=== PATIENT | female | born 1965 | race Asian ===

== ENCOUNTER 2017-02-10 16:46 | Emergency (ER) | payer OTHER ==
[~2017-02-10] VITALS: Ht 167.6 cm; Wt 64.2 kg
[~2017-02-10 16:46] MED LIST: BIFI1CAP PO; CALC1CAP8 PO; GLUC1TAB27 PO; LORA-438 PO; MULT-516 PO; TAMO10TA PO; [UNRECOGNIZED DRUG - OTHER] PO; [UNRECOGNIZED DRUG - OTHER] PO; [UNRECOGNIZED DRUG - OTHER] PO
[2017-02-10] MEDS ORDERED: ASPIRIN 81 MG TABLET CHEW PO ONE (17:00)
[2017-02-10 17:24] LABS: HEMATOCRIT 41.1 % (34.6-47.8); WHITE BLOOD COUNT 6.7 x10^3/uL (3.4-10)
[2017-02-10 17:34] LABS: ASPARTATE AMINO TRANSFERASE 19 U/L (15-37); BLOOD UREA NITROGEN 14 mg/dL (7-18)
[2017-02-10] MEDS ORDERED: ASPIRIN 81 MG TABLET CHEW ONE (17:39)
[2017-02-10 17:40] LABS: IS PT STATUS REG ER OR PRE ER? YES
[2017-02-10 18:16] VITALS: BP 110/71
== END 2017-02-10 18:19 | disposition home or self-care (01) ==
LOC: ED 18:00
DX: R07.89 Other chest pain (principal)
CPT/HCPCS: 36415; 71010; 80053; 84484; 85025; 93005; 99285

== ENCOUNTER → 2017-02-18 | Outpatient (CLI) | payer OTHER ==
[2017-02-18 07:57] LABS: HEMATOCRIT 42.5 % (34.6-47.8); HEMOGLOBIN 14.5 g/dL (11.7-16.4)
[2017-02-18 08:09] LABS: BLOOD UREA NITROGEN 18 mg/dL (7-18)
[2017-02-18 08:21] LABS: ASPARTATE AMINO TRANSFERASE 25 U/L (15-37)
== END | disposition home or self-care (01) ==
LOC: LAB 07:42
PROVIDERS: ATTEND Physician Assistant
DX: Z13.220 Encounter for screening for lipoid disorders (principal); R53.83 Other fatigue; E78.5 Hyperlipidemia, unspecified; R73.01 Impaired fasting glucose; C50.919 Malignant neoplasm of unspecified site of unspecified female breast; N39.0 Urinary tract infection, site not specified; R07.89 Other chest pain; E04.1 Nontoxic single thyroid nodule; E34.9 Endocrine disorder, unspecified; Z87.442 Personal history of urinary calculi
CPT/HCPCS: 36415; 80053; 80061; 82306; 83970; 84100; 84443; 85025

== ENCOUNTER → 2017-09-08 | Outpatient (CLI) | payer OTHER ==
[2017-09-08 08:19] LABS: BASOPHILS # (AUTO) 0.06 x10^3/uL (0-0.1); BASOPHILS % (AUTO) 1 % (0-1); EOSINOPHILS % (AUTO) 4 % (1-7); LYMPHOCYTES # (AUTO) 1.96 x10^3/uL (1-3.4); LYMPHOCYTES % (AUTO) 40 % (22-44); MD NO; MEAN CORPUSCULAR HEMOGLOBIN 30.4 pg (27.0-34.8); MEAN CORPUSCULAR HGB CONC 33.8 g/dL (32.4-35.8); MEAN PLATELET VOLUME 8.4 fL (7.4-10.4); MONOCYTES # (AUTO) 0.35 x10^3/uL (0.2-0.8); MONOCYTES % (AUTO) 7 % (2-9); NEUTROPHILS # (AUTO) 2.37 x10^3/uL (1.8-6.8); NEUTROPHILS % (AUTO) 48 % (42-75); PLATELET COUNT 293 x10^3/uL (130-400); RED CELL DISTRIBUTION WIDTH 12.4 % (9.6-15.2)
[2017-09-08 08:32] LABS: ALANINE AMINOTRANSFERASE 29 U/L (12-78); ALBUMIN 3.5 g/dL (3.4-5.0); ANION GAP 6 mmol/L (5-15); CALCIUM 8.4 mg/dL (8.5-10.1); CHLORIDE 108 mmol/L (98-107); MICROSCOPIC NOT IND
[2017-09-08 08:36] LABS: CULTURE INDICATED? NO
[2017-09-08 08:57] LABS: ALKALINE PHOSPHATASE 69 U/L (45-117); BILIRUBIN,TOTAL 0.4 mg/dL (0.2-1.0); CHOL/HDL RATIO 4.2; CHOLESTEROL, TOTAL 190 mg/dL (140-239); CREATININE 0.76 mg/dL (0.55-1.02); FREE T4 (FREE THYROXINE) 1.04 ng/dL (0.76-1.46); HDL CHOL % 24 % (28-40); HDL CHOLESTEROL (DIRECT) 45 mg/dL (40-60); LDL CHOLESTEROL,CALCULATED 90 mg/dL (54-169); THYROID STIMULATING HORMONE 0.755 mIU/L (0.358-3.740); TOTAL PROTEIN 6.8 g/dL (6.4-8.2); TRIGLYCERIDES 277 mg/dL (50-200); VLDL CHOLESTEROL 55 mg/dL (0-25)
[2017-09-08 09:01] LABS: FOLATE LEVEL > 20.0 ng/mL (3.1-17.5)
== END | disposition home or self-care (01) ==
LOC: LAB 07:58
PROVIDERS: ATTEND Nurse Practitioner Primary Care
DX: Z13.220 Encounter for screening for lipoid disorders (principal); R53.83 Other fatigue; E78.5 Hyperlipidemia, unspecified; R73.01 Impaired fasting glucose; N39.0 Urinary tract infection, site not specified; E04.9 Nontoxic goiter, unspecified; M79.669 Pain in unspecified lower leg; C50.919 Malignant neoplasm of unspecified site of unspecified female breast; Z87.442 Personal history of urinary calculi
CPT/HCPCS: 36415; 80053; 80061; 81003; 82306; 82607; 82746; 83036; 84207; 84425; 84439; 84443; 84480; 85025

== ENCOUNTER → 2017-11-23 | Outpatient (CLI) | payer OTHER | END | disposition home or self-care (01) | LOC: CFH 07:07 | PROVIDERS: ATTEND Physician Assistant | DX: R10.9 Unspecified abdominal pain (principal); E78.5 Hyperlipidemia, unspecified; C50.919 Malignant neoplasm of unspecified site of unspecified female breast; Z87.442 Personal history of urinary calculi | CPT/HCPCS: 76700 ==

== ENCOUNTER → 2018-02-22 | Outpatient (CLI) | payer OTHER ==
[2018-02-22 08:12] LABS: MICROSCOPIC NOT IND
[2018-02-22 08:13] LABS: ALBUMIN 3.8 g/dL (3.4-5.0); BILIRUBIN, DIRECT 0.3 mg/dL (0.1-0.2)
[2018-02-22 08:15] LABS: BILIRUBIN,INDIRECT 0.4 mg/dL (0.0-2.0); BILIRUBIN,TOTAL 0.7 mg/dL (0.2-1.0); CHOL/HDL RATIO 2.8; LDL/HDL RATIO 1.5 (0.5-3.0); TOTAL PROTEIN 7.2 g/dL (6.4-8.2)
[2018-02-22 08:19] LABS: CULTURE INDICATED? NO
[2018-02-22 12:31] LABS: HEMOGLOBIN A1C 5.8 % (4.2-6.3)
== END | disposition home or self-care (01) ==
LOC: LAB 07:45
PROVIDERS: ATTEND Physician Assistant
DX: Z13.220 Encounter for screening for lipoid disorders (principal); C50.919 Malignant neoplasm of unspecified site of unspecified female breast; R53.83 Other fatigue; E78.5 Hyperlipidemia, unspecified; R73.01 Impaired fasting glucose; E04.9 Nontoxic goiter, unspecified; N39.0 Urinary tract infection, site not specified; K42.9 Umbilical hernia without obstruction or gangrene; R10.9 Unspecified abdominal pain; Z87.442 Personal history of urinary calculi
CPT/HCPCS: 36415; 80061; 80076; 81003; 83036

== ENCOUNTER → 2018-07-28 | Outpatient (CLI) | payer OTHER ==
[2018-07-28 08:39] LABS: MICROSCOPIC NOT IND
[2018-07-28 08:43] LABS: BASOPHILS # (AUTO) 0.04 x10^3/uL (0-0.1); BASOPHILS % (AUTO) 1 % (0-1); EOSINOPHILS # (AUTO) 0.17 x10^3/uL (0-0.4); EOSINOPHILS % (AUTO) 4 % (1-7); LYMPHOCYTES # (AUTO) 1.58 x10^3/uL (1-3.4); LYMPHOCYTES % (AUTO) 36 % (22-44); MD NO; MEAN CORPUSCULAR HGB CONC 34.1 g/dL (32.4-35.8); MEAN PLATELET VOLUME 8.6 fL (7.4-10.4); MONOCYTES % (AUTO) 7 % (2-9); NEUTROPHILS # (AUTO) 2.37 x10^3/uL (1.8-6.8); NEUTROPHILS % (AUTO) 53 % (42-75); PLATELET COUNT 352 x10^3/uL (130-400); RED BLOOD COUNT 4.64 x10^6/uL (3.82-5.3); RED CELL DISTRIBUTION WIDTH 12.7 % (9.6-15.2)
[2018-07-28 08:47] LABS: CULTURE INDICATED? NO
[2018-07-28 08:49] LABS: ALBUMIN 4.1 g/dL (3.4-5.0); ANION GAP 4 mmol/L (5-15); CALCIUM 9.3 mg/dL (8.5-10.1); CHLORIDE 106 mmol/L (98-107); CHOLESTEROL, TOTAL 240 mg/dL (140-239); TRIGLYCERIDES 90 mg/dL (50-200); VLDL CHOLESTEROL 18 mg/dL (0-25)
[2018-07-28 09:15] LABS: ALANINE AMINOTRANSFERASE 29 U/L (12-78); ALKALINE PHOSPHATASE 92 U/L (45-117); BILIRUBIN,TOTAL 0.4 mg/dL (0.2-1.0); CHOL/HDL RATIO 3.2; CREATININE 0.82 mg/dL (0.55-1.02); FOLATE LEVEL 13.4 ng/mL (3.1-17.5); FREE T4 (FREE THYROXINE) 1.03 ng/dL (0.76-1.46); HDL CHOL % 31 % (28-40); HDL CHOLESTEROL (DIRECT) 75 mg/dL (40-60); HEMOGLOBIN A1C 5.8 % (4.2-6.3); LDL CHOLESTEROL,CALCULATED 147 mg/dL (54-169); THYROID STIMULATING HORMONE 0.833 mIU/L (0.358-3.740); TOTAL PROTEIN 7.5 g/dL (6.4-8.2)
== END | disposition home or self-care (01) ==
LOC: LAB 08:11
PROVIDERS: ATTEND Nurse Practitioner Primary Care
DX: Z13.220 Encounter for screening for lipoid disorders (principal); C50.919 Malignant neoplasm of unspecified site of unspecified female breast; E78.5 Hyperlipidemia, unspecified; E04.9 Nontoxic goiter, unspecified; E88.81 Metabolic syndrome and other insulin resistance; E55.9 Vitamin D deficiency, unspecified; E78.2 Mixed hyperlipidemia; J06.0 Acute laryngopharyngitis; R53.83 Other fatigue
CPT/HCPCS: 36415; 80053; 80061; 81003; 82306; 82607; 82652; 82746; 83036; 83970; 84100; 84207; 84425; 84439; 84443; 84481; 85025

== ENCOUNTER 2018-10-12 07:10 | Outpatient (CLI) | payer OTHER | END 2018-10-12 23:59 | disposition home or self-care (01) | LOC: CFH 07:10 | PROVIDERS: ATTEND Nurse Practitioner Primary Care | DX: E04.2 Nontoxic multinodular goiter (principal) | CPT/HCPCS: 76536 ==

== ENCOUNTER 2019-01-25 07:22 | Outpatient (CLI) | payer OTHER ==
[~2019-01-25 07:22] MED LIST changes: -LORA-438 PO; +LORA-864 PO
== END 2019-01-25 23:59 | disposition home or self-care (01) ==
LOC: RAD 07:22
PROVIDERS: ATTEND Nurse Practitioner Primary Care
DX: E07.9 Disorder of thyroid, unspecified (principal); Z85.3 Personal history of malignant neoplasm of breast
CPT/HCPCS: 78013; A9516

== ENCOUNTER 2019-03-30 08:38 | Outpatient (CLI) | payer OTHER ==
[2019-03-30 09:03] LABS: ALANINE AMINOTRANSFERASE 27 U/L (12-78); ALBUMIN 3.9 g/dL (3.4-5.0); ANION GAP 5 mmol/L (5-15); CALCIUM 9.2 mg/dL (8.5-10.1); CHLORIDE 108 mmol/L (98-107); CHOLESTEROL, TOTAL 187 mg/dL (140-239); CREATININE 0.78 mg/dL (0.55-1.02)
[2019-03-30 09:05] LABS: ALKALINE PHOSPHATASE 98 U/L (45-117); BILIRUBIN,TOTAL 0.6 mg/dL (0.2-1.0); CHOL/HDL RATIO 2.5; HDL CHOL % 41 % (28-40); HDL CHOLESTEROL (DIRECT) 76 mg/dL (40-60); LDL CHOLESTEROL,CALCULATED 81 mg/dL (54-169); LDL/HDL RATIO 1.1 (0.5-3.0); TOTAL PROTEIN 7.4 g/dL (6.4-8.2); TRIGLYCERIDES 150 mg/dL (50-200); VLDL CHOLESTEROL 30 mg/dL (0-25)
== END 2019-03-30 23:59 | disposition home or self-care (01) ==
LOC: LAB 08:38
PROVIDERS: ATTEND Nurse Practitioner Primary Care
DX: Z13.220 Encounter for screening for lipoid disorders (principal); E55.9 Vitamin D deficiency, unspecified; C50.919 Malignant neoplasm of unspecified site of unspecified female breast; E88.81 Metabolic syndrome and other insulin resistance; E78.2 Mixed hyperlipidemia; E07.9 Disorder of thyroid, unspecified; R53.83 Other fatigue
CPT/HCPCS: 36415; 80053; 80061; 83036

== ENCOUNTER → 2019-07-19 | Outpatient (CLI) | payer OTHER ==
[~2019-07-19] MED LIST changes: -TAMO10TA PO; +TAMO10TA6 PO
[2019-07-19 08:21] LABS: BASOPHILS # (AUTO) 0.04 x10^3/uL (0-0.1); BASOPHILS % (AUTO) 1 % (0-1); EOSINOPHILS # (AUTO) 0.14 x10^3/uL (0-0.4); EOSINOPHILS % (AUTO) 3 % (1-7); LYMPHOCYTES % (AUTO) 30 % (22-44); MD NO; MEAN CORPUSCULAR HEMOGLOBIN 30.8 pg (27.0-34.8); MEAN CORPUSCULAR HGB CONC 33.2 g/dL (32.4-35.8); MEAN CORPUSCULAR VOLUME 92.6 fL (80-100); MEAN PLATELET VOLUME 8.3 fL (7.4-10.4); MICROSCOPIC NOT IND; MONOCYTES # (AUTO) 0.25 x10^3/uL (0.2-0.8); MONOCYTES % (AUTO) 5 % (2-9); NEUTROPHILS # (AUTO) 2.86 x10^3/uL (1.8-6.8); NEUTROPHILS % (AUTO) 61 % (42-75); PLATELET COUNT 316 x10^3/uL (130-400); RED BLOOD COUNT 4.85 x10^6/uL (3.82-5.3)
[2019-07-19 08:22] LABS: CULTURE INDICATED? NO
[2019-07-19 08:38] LABS: ANION GAP 5 mmol/L (5-15); CALCIUM 9.5 mg/dL (8.5-10.1); CHLORIDE 109 mmol/L (98-107)
[2019-07-19 09:03] LABS: ALANINE AMINOTRANSFERASE 31 U/L (12-78); ALKALINE PHOSPHATASE 101 U/L (45-117); BILIRUBIN,TOTAL 0.7 mg/dL (0.2-1.0); CREATININE 0.74 mg/dL (0.55-1.02); FREE T4 (FREE THYROXINE) 1.04 ng/dL (0.76-1.46); TOTAL PROTEIN 7.5 g/dL (6.4-8.2)
[2019-07-19 09:04] LABS: FOLATE LEVEL > 20.0 ng/mL (3.1-17.5)
== END | disposition home or self-care (01) ==
LOC: LAB 07:49
PROVIDERS: ATTEND Nurse Practitioner Primary Care
DX: Z13.220 Encounter for screening for lipoid disorders (principal); C50.919 Malignant neoplasm of unspecified site of unspecified female breast; E78.5 Hyperlipidemia, unspecified; E55.9 Vitamin D deficiency, unspecified; E78.2 Mixed hyperlipidemia; E07.9 Disorder of thyroid, unspecified; E88.81 Metabolic syndrome and other insulin resistance; J06.0 Acute laryngopharyngitis; R53.83 Other fatigue
CPT/HCPCS: 36415; 80053; 80061; 81003; 82525; 82607; 82652; 82746; 83036; 83735; 84439; 84443; 84481; 84630; 85025

== ENCOUNTER 2020-05-31 07:47 | Outpatient (CLI) | payer OTHER ==
[2020-05-31 08:20] LABS: BASOPHILS % (AUTO) 1 % (0-1); EOSINOPHILS % (AUTO) 3 % (1-7); LYMPHOCYTES % (AUTO) 31 % (22-44); MEAN CORPUSCULAR HEMOGLOBIN 31.7 pg (27.0-34.8); MEAN CORPUSCULAR HGB CONC 34.5 g/dL (32.4-35.8); MEAN PLATELET VOLUME 8.9 fL (7.4-10.4); MONOCYTES % (AUTO) 6 % (2-9); NEUTROPHILS % (AUTO) 60 % (42-75); PLATELET COUNT 292 x10^3/uL (130-400); RED BLOOD COUNT 4.59 x10^6/uL (3.82-5.3); RED CELL DISTRIBUTION WIDTH 12.4 % (9.6-15.2)
[2020-05-31 08:30] LABS: MD NO
[2020-05-31 08:33] LABS: ALBUMIN 4.1 g/dL (3.4-5.0); ANION GAP 10 mmol/L (5-15); CHLORIDE 109 mmol/L (98-107)
[2020-05-31 08:42] LABS: MICROSCOPIC NOT IND
[2020-05-31 08:58] LABS: ALANINE AMINOTRANSFERASE 27 U/L (12-78); ALKALINE PHOSPHATASE 101 U/L (45-117); BILIRUBIN,TOTAL 0.5 mg/dL (0.2-1.0); CREATININE 0.75 mg/dL (0.55-1.02); FREE T4 (FREE THYROXINE) 0.97 ng/dL (0.76-1.46); TOTAL PROTEIN 7.3 g/dL (6.4-8.2)
[2020-05-31 09:03] LABS: FOLATE LEVEL > 20.0 ng/mL (3.1-17.5)
== END 2020-05-31 23:59 | disposition home or self-care (01) ==
LOC: LAB 07:47
PROVIDERS: ATTEND Nurse Practitioner Primary Care
DX: Z13.220 Encounter for screening for lipoid disorders (principal); C50.919 Malignant neoplasm of unspecified site of unspecified female breast; E55.9 Vitamin D deficiency, unspecified; E78.5 Hyperlipidemia, unspecified; E88.81 Metabolic syndrome and other insulin resistance; E07.9 Disorder of thyroid, unspecified
CPT/HCPCS: 36415; 80053; 80061; 81003; 82607; 82652; 82746; 83036; 83704; 84207; 84425; 84439; 84443; 84481; 85025

== ENCOUNTER 2020-12-10 07:50 | Outpatient (CLI) | payer OTHER ==
[2020-12-10 08:21] LABS: ALANINE AMINOTRANSFERASE 40 U/L (12-78); ALBUMIN 3.9 g/dL (3.4-5.0); ANION GAP 5 mmol/L (5-15); CALCIUM 8.9 mg/dL (8.5-10.1); CHLORIDE 108 mmol/L (98-107); CREATININE 0.63 mg/dL (0.55-1.02)
[2020-12-10 08:29] LABS: ALKALINE PHOSPHATASE 111 U/L (45-117); BILIRUBIN,TOTAL 0.7 mg/dL (0.2-1.0); CHOLESTEROL, TOTAL 158 mg/dL (140-239); FREE T4 (FREE THYROXINE) 0.89 ng/dL (0.76-1.46); HDL CHOL % 51 % (28-40); HDL CHOLESTEROL (DIRECT) 80 mg/dL (40-60); LDL CHOLESTEROL,CALCULATED 61 mg/dL (54-169); LDL/HDL RATIO 0.8 (0.5-3.0); TOTAL PROTEIN 7.4 g/dL (6.4-8.2); TRIGLYCERIDES 85 mg/dL (50-200); VLDL CHOLESTEROL 17 mg/dL (0-25)
== END 2020-12-10 23:59 | disposition home or self-care (01) ==
LOC: LAB 07:50
PROVIDERS: ATTEND Nurse Practitioner Primary Care
DX: Z13.220 Encounter for screening for lipoid disorders (principal); C50.919 Malignant neoplasm of unspecified site of unspecified female breast; E78.5 Hyperlipidemia, unspecified; E55.9 Vitamin D deficiency, unspecified; E07.9 Disorder of thyroid, unspecified
CPT/HCPCS: 36415; 80053; 80061; 82306; 82652; 84439; 84443; 84481